=== PATIENT | female | born 1935 | race African-American/Black ===

== ENCOUNTER 2021-10-12 10:19 | Emergency (ER) | payer OTHER ==
[~2021-10-12] VITALS: Ht 167.6 cm; Wt 84.0 kg
[2021-10-12] MEDS ORDERED: IOHEXOL-350 100 ML BOTTLE ONE (10:57)
[2021-10-12 11:07] LABS: BASOPHILS % 0.5 % (0.0-2.0); EOSINOPHILS % 1.4 % (0.0-5.0); HEMATOCRIT. 35.4 % (36.0-48.0); HEMOGLOBIN. 11.8 g/dL (12.0-16.0); LYMPHOCYTES % 35.9 % (20.0-50.0); MEAN CORPUSCULAR HEMOGLOBIN 30.4 pg (28.0-32.0); MONOCYTES % 7.8 % (2.0-8.0); NEUTROPHILS % 54.4 % (40.0-76.0); PLATELET 231 x1000/uL (130-400); RED BLOOD CELL COUNT 3.89 mill/uL (4.2-5.4)
[2021-10-12 11:17] LABS: CHLORIDE 109 mEq/L (98-107)
[2021-10-12 13:28] LABS: CLARITY URINE CLOUDY (CLEAR); COLOR URINE YELLOW (YELLOW); KETONES URINE NEGATIVE (NEGATIVE); LEUKOCYTE ESTERASE URINE 3+ (NEGATIVE); NITRITE URINE POSITIVE (NEGATIVE); OCCULT BLOOD URINE TRACE (NEGATIVE); PROTEIN URINE 1+ (NEGATIVE); SPECIFIC GRAVITY URINE 1.039 (1.005-1.030); UROBILINOGEN URINE 0.2 E.U./dL (0.2-1.0)
[2021-10-12] MEDS ORDERED: CEFTRIAXONE 1 G PREMIX 50 ML IV ONE (13:45)
[2021-10-12] MEDS ORDERED: SODIUM CHLORIDE 0.9% 1,000 ML IV ONE (14:45)
[2021-10-12 16:49] VITALS: BP 133/87
[2021-10-12] MEDS ORDERED: ONDANSETRON HCL 4MG/2ML INJ IV NR (17:45)
== END 2021-10-12 17:29 | disposition short-term general hospital (02) ==
LOC: EDBEDREQ 10:31 → EDBEDREQSVC 10:31 → EDBEDREQTM 10:31 → ER 10:56 → CANBEDREQ 10-14 07:10
DX: I63.9 Cerebral infarction, unspecified (principal); I10 Essential (primary) hypertension; N39.0 Urinary tract infection, site not specified; Z20.822 Contact with and (suspected) exposure to COVID-19; Z88.6 Allergy status to analgesic agent; Z88.5 Allergy status to narcotic agent; Z88.8 Allergy status to other drugs, medicaments and biological substances
CPT/HCPCS: 36415; 70450; 70496; 70498; 71045; 80053; 81003; 82962; 83605; 83690; 84484; 85025; 87077; 87086; 87186; 87426; 93005; 96365; 96375; 99291; J0696; J2405; J7030; Q9967

== ENCOUNTER 2022-05-16 14:34 | Emergency (ER) | payer OTHER ==
[~2022-05-16] VITALS: Ht 162.6 cm; Wt 65.0 kg
[2022-05-16] MEDS ORDERED: SODIUM CHLORIDE 0.9% 1,000 ML IV ONE (14:45)
[2022-05-16] MEDS ORDERED: CEFTRIAXONE 1 G PREMIX 50 ML IV ONE (14:45)
[2022-05-16 15:10] LABS: BG CARBOXYHEMOGLOBIN 0.8 % (0.5-1.5); BG DEOXYHEMOGLOBIN 6.3 % (0.0-5.0); BG FRACTION INSPIRED OXYGEN 21; BG HCO3 ACT 24.5 mmol/L (22.0-26.0); BG METHEMOGLOBIN 0.3 % (0.0-1.5); BG OXYGEN SATURATION 93.6 % (92.0-98.5); BG OXYHEMOGLOBIN 92.6 % (94.0-97.0); BG PCO2 35.5 mmHg (35.0-45.0); BG PH 7.457 (7.350-7.450); BG PO2 66.1 mmHg (75.0-100.0); BG SAMPLE SITE LEFT BRACHIAL; BG TOTAL HEMOGLOBIN 12.5 g/dL (12.0-18.0); BG VENT MODE ROOM AIR
[2022-05-16 16:14] LABS: BASOPHILS % 0.4 % (0.0-2.0); EOSINOPHILS % 1.2 % (0.0-5.0); HEMATOCRIT. 39.2 % (36.0-48.0); HEMOGLOBIN. 12.6 g/dL (12.0-16.0); LYMPHOCYTES % 22.2 % (20.0-50.0); MEAN CORPUSCULAR HEMOGLOBIN 29.9 pg (28.0-32.0); MEAN CORPUSCULAR VOLUME 92.6 fL (81.0-99.0); MEAN PLATELET VOLUME 8.9 fl (7.4-10.4); MONOCYTES % 7.7 % (2.0-8.0); NEUTROPHILS % 68.5 % (40.0-76.0); PLATELET 164 x1000/uL (130-400); RED BLOOD CELL COUNT 4.23 mill/uL (4.2-5.4)
[2022-05-16 16:23] LABS: PROTHROMBIN TIME 10.8 sec (9.6-11.0)
[2022-05-16 16:25] LABS: CHLORIDE 112 mEq/L (98-107)
[2022-05-16] MEDS ORDERED: CEFTRIAXONE 1 G PREMIX 50 ML IV NR (17:00)
[2022-05-16] MEDS ORDERED: IOHEXOL-350 100 ML BOTTLE ONE (17:57)
[2022-05-16] MEDS ORDERED: ENOXAPARIN 60MG/0.6ML SYR SUBCUT NR (18:15)
[2022-05-16 19:06] LABS: CLARITY URINE CLEAR (CLEAR); COLOR URINE YELLOW (YELLOW); KETONES URINE NEGATIVE (NEGATIVE); LEUKOCYTE ESTERASE URINE 1+ (NEGATIVE); NITRITE URINE NEGATIVE (NEGATIVE); OCCULT BLOOD URINE NEGATIVE (NEGATIVE); PH URINE 7.5 (4.5-8.0); PROTEIN URINE NEGATIVE (NEGATIVE); UROBILINOGEN URINE 0.2 E.U./dL (0.2-1.0)
[2022-05-16 21:00] VITALS: BP 128/78
== END 2022-05-16 21:20 | disposition short-term general hospital (02) ==
LOC: ER 15:26 → CANBEDREQ 05-17 20:24
DX: I26.99 Other pulmonary embolism without acute cor pulmonale (principal); G93.49 Other encephalopathy; I10 Essential (primary) hypertension; E86.0 Dehydration; N39.0 Urinary tract infection, site not specified; R53.1 Weakness; G20 Parkinson's disease; F02.80 Dementia in other diseases classified elsewhere, unspecified severity, without behavioral disturbance, psychotic disturbance, mood disturbance, and anxiety; Z86.73 Personal history of transient ischemic attack (TIA), and cerebral infarction without residual deficits; Z20.822 Contact with and (suspected) exposure to COVID-19; Z88.8 Allergy status to other drugs, medicaments and biological substances; Z88.5 Allergy status to narcotic agent
CPT/HCPCS: 36415; 36600; 70450; 70496; 70498; 71045; 80053; 81003; 82140; 82375; 82805; 83605; 84145; 84443; 84484; 85025; 85610; 87426; 87804; 93005; 96361; 96365; 96372; 99291; C9803; J0696; J1650; J7030; Q9967; A4315

== ENCOUNTER 2024-06-15 17:32 | Emergency (ER) | payer OTHER ==
[~2024-06-15] VITALS: Ht 170.2 cm; Wt 70.0 kg
[2024-06-15 17:33] VITALS: O2SAT 97
[2024-06-15] MEDS ORDERED: HYDRALAZINE 20MG/ML VIAL IV ONE (20:45)
[2024-06-15 20:51] LABS: CARBON DIOXIDE 24 mEq/L (21-32); CHLORIDE 111 mEq/L (98-107); POTASSIUM 3.7 mEq/L (3.5-5.1); SODIUM 146 mEq/L (136-145)
[2024-06-15 20:52] LABS: CALCIUM 9.7 mg/dL (8.7-10.4)
[2024-06-15 20:56] LABS: TROPONIN I HIGH SENSITIVITY 10 ng/L (3.0-34)
[2024-06-15 20:57] LABS: BASOPHILS % 0.2 % (0.0-2.0); EOSINOPHILS % 0.1 % (0.0-5.0); GLUCOSE 225 mg/dL (70-105); HEMATOCRIT. 41.1 % (36.0-48.0); HEMOGLOBIN. 13.1 g/dL (12.0-16.0); LYMPHOCYTES % 16.1 % (20.0-50.0); MEAN CORPUSCULAR HEMOGLOBIN 29.2 pg (28.0-32.0); MEAN CORPUSCULAR HGB CONC 31.9 g/dL (31.0-37.0); MEAN CORPUSCULAR VOLUME 91.6 fL (81.0-99.0); MEAN PLATELET VOLUME 8.9 fl (7.4-10.4); NEUTROPHILS % 74.6 % (40.0-76.0); PLATELET 179 x1000/uL (130-400); RED BLOOD CELL COUNT 4.49 mill/uL (4.2-5.4); RED CELL DISTRIBUTION WIDTH 15.8 % (11.6-14.6); UREA NITROGEN BLOOD 28 mg/dL (9-23); WHITE BLOOD COUNT 8.4 x1000/uL (4.5-11.0)
[2024-06-15 20:58] LABS: AMMONIA < 17 uMol/L (<32)
[2024-06-15] MEDS: SODIUM CHLORIDE 0.9% 1,000 ML IV ONE (21:23)
[2024-06-15] MEDS: HYDRALAZINE 20MG/ML VIAL IV NR (23:17)
[2024-06-16 00:02] VITALS: BP 129/62; PULSE 95; RESP 16; O2SAT 97
== END 2024-06-16 00:13 | disposition short-term general hospital (02) ==
LOC: ER 17:32
DX: G93.40 Encephalopathy, unspecified (principal); I11.9 Hypertensive heart disease without heart failure; E87.0 Hyperosmolality and hypernatremia; E86.0 Dehydration; F03.90 Unspecified dementia, unspecified severity, without behavioral disturbance, psychotic disturbance, mood disturbance, and anxiety; I67.82 Cerebral ischemia; Z88.5 Allergy status to narcotic agent; Z88.6 Allergy status to analgesic agent
CPT/HCPCS: 99285; 70450; 96374; 71045; 96361; 80048; 82140; 83690; 85025; 84484; 36415; 74176; 93005; J0360; J7030